=== PATIENT | female | born 1995 | race Two or more races ===

== ENCOUNTER 2024-09-17 12:40 | Emergency (ER) | payer MEDICAID, OTHER ==
[~2024-09-17] VITALS: Ht 154.9 cm; Wt 54.5 kg
[2024-09-17 12:42] VITALS: TEMP 97.6
--- NOTE | 2024-09-17 13:58 | ED.PDOC ---
Mult. trauma (HPI) HPI Comments 29 y/o F, presents to the ED for CC of animal bite. Patient states, she was bite by an unknown dog last night (09/17/24). Patient has, a jagged laceration to her right medial anterior thigh. Patient reports, that she is not UTD on her tetanus shot. Patient denies anuy purulent discharge, fever, chills, or sweats. No other symptoms or modifying factors present at this time. Chief Complaint: Animal Bite Time Seen by MD: 13:45 Reviewed notes: Nurses Notes, Medications, Allergies Allergies: Coded Allergies: NO KNOWN ALLERGIES (Unverified , 09/17/24) Home Meds Active Scripts Amoxicillin & Pot Clavulanate (Augmentin) 500 Mg Tab, 1 TAB PO BID for 10 Days, #20 TAB Prov:EFREN MAST MD 09/17/24 Mode of Arrival: Ambulatory Severity: Moderate Timing: Days Duration: Since onset Prehospital treatment: None Location: (R) Thigh Location of laceration: Other (right medial anterior thigh) Mechanism: Other (animal bite) Associated signs and symtoms: None Past Medical History PAST MEDICAL HISTORY: Denies Surgical History: Denies all surgeries [employer] 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 Family History Family History: Unknown Social History Smoker: Non-Smoker Alcohol: Denies ETOH Use Drugs: Denies Drug Use Lives In: Home Constitutional: denies: chills, diaphoresis, fatigue, fever, malaise, sweats, weakness, others EENTM: denies: blurred vision, double vision, ear bleeding, ear discharge, ear drainage, ear pain, ear ringing, eye pain, eye redness, hearing loss, mouth pain, mouth swelling, nasal discharge, nose bleeding, nose congestion, nose pain, photophobia, tearing, throat pain, throat swelling, voice changes, others Respiratory: denies: cough, hemoptysis, orthopnea, SOB at rest, shortness of breath, SOB with excertion, stridor, wheezing, others Cardiovascular: denies: chest pain, dizzy spells, diaphoresis, Dyspnea on exertion, edema, irregular heart beat, left arm pain, lightheadedness, palpitations, PND, syncope, others Gastrointestinal: denies: abdomen distended, abdominal pain, blood streaked bowels, constipated, diarrhea, dysphagia, difficulty swallowing, hematemesis, melena, nausea, poor appetite, poor fluid intake, rectal bleeding, rectal pain, vomiting, others Genitourinary: denies: abnormal vagina bleeding, burning, dyspareunia, dysuria, flank pain, frequency, hematuria, incontinence, pain, , vagina discharge, urgency, others Neurological: denies: dizziness, fainting, headache, left sided numbness, left sided weakness, numbness, paresthesia, pre-existing deficit, right sided numbness, right sided weakness, seizure, speech problems, tingling, tremors, weakness, others Musculoskeletal: denies: back pain, gout, joint pain, joint swelling, muscle pain, muscle stiffness, neck pain, others Integumetry: reports: laceration (right medial anterior thigh); denies: bruises, change in color, change in hair/nails, dryness, lesions, lumps, rash, wounds, others Allergic/Immunocompromised: denies: Difficulty Healing, Frequent Infections, Hives, Itching, others Hematologic/Lymphatic: denies: anemia, blood clots, easy bleeding, easy bruising, swollen glands, others Endocrine: denies: excessive hunger, excessive sweating, excessive thirst, excessive urination, flushing, intolerance to cold, intolerance to heat, unexplained weight gain, unexplained weight loss, others Psychiatric: denies: anxiety, bipolar disorder, depression, hopeless, panic disorder, schizophrenia, sleepless, suicidal, others All Other Systems: Reviewed and Negative Physical Exam General Appearance: Moderate Distress HEENT: Normal ENT Inspection, Pharynx Normal, TMs Normal Neck: Full Range of Motion, Non-Tender, Normal, Normal Inspection Respiratory: Chest Non-Tender, Lungs Clear, No Accessory Muscle Use, No Respiratory Distress, Normal Breath Sounds Cardiovascular: No Edema, No JVD, No Murmur, No Gallop, Normal Peripheral Pulses, Regular Rate/Rhythm Breast Exam: Deferred Gastrointestinal: No Organomegaly, Non Tender, No Pulsatile Mass, Normal Bowel Sounds, Soft Genitalia: Deferred Pelvic: Deferred Rectal: Deferred Extremities: No calf tenderness, Normal capillary refill, Normal inspection, Normal range of motion, Non-tender, No pedal edema Musculoskeletal : Apperance: Normal Neurologic: Alert, weight recorder II-XII nml as Tested, No Motor Deficits, Normal Affect, Normal Mood, No Sensory Deficits Cerebellar Function: Normal Reflexes: Normal Skin: Wounds (Right thigh punctate lesion 1.5 cm) Peripheral Pulses: 3+ Radial (R), 3+ Radial (L) Lymphatic: No Adenopathy Was a procedure done? Was a procedure done?: Yes Sedation Sedation?: No Laceration Repair : Location right medial anterior thigh Length 2cm V-shaped, Irregular Anesthetic: Lidocaine Laceration Repair Prep: Betadine (hydrogen peroxide), Manual Scrub Laceration Repair Wound Comple: epidermis/dermis repair Laceration Repair: [place] (6) Informed consent obtained: Yes Risks, benefits, and alternati: Yes Differential Diagnosis Multiple Trauma: Abrasions, Laceration X-Ray, Labs, Meds, VS Vital Signs Date Time Temp Pulse Resp B/P (MAP) Pulse Ox O2 Delivery O2 Flow Rate FiO2 09/17/24 15:17 120 18 139/101 (114) 94 09/17/24 15:17 120 18 94 Room Air 09/17/24 12:42 97.6 145 22 125/92 90 97.6 Current Medications Medications (Trade) Dose Ordered Sig/Radha Route Start Time Stop Time Status Last Admin Rabies Vaccine (Rabavert) 2.5 units ONCE ONCE IM 09/17/24 14:30 09/17/24 14:31 DC 09/17/24 14:30 Diphtheria/ Tetanus/Acell Pertussis (Boostrix T-Dap) 0.5 ml ONCE ONCE IM 09/17/24 14:30 09/17/24 14:31 DC 09/17/24 15:32 Patient alert. Unknown dog bite. Punctate lesion. Put one staple in the middle keep the wound open for drainage. Was given tetanus. Was given prescription Augmentin antibiotic. Explained to the patient about further infection from the wound. Has been almost a day since she came to the ER after the bite. Unable to close the wound. Very difficult bite. Adipose tissues skin irregular thin shredded. Try to approximate. High-risk of infection. Was told to follow up with her primary care physician. Was told to come back if there is any problem. Time of 1ST Reevaluation: 14:15 Reevaluation 1ST: Unchanged Patient Education/Counseling: Diagnosis, Treatment Family Education/Counseling: No Family Present Departure 1 Departure Time of Disposition: 16:01 Impression: Primary Impression: Dog bite Qualified Codes: W54.0XXA - Bitten by dog, initial encounter Additional Impression: Cellulitis Qualified Codes: L03.115 - Cellulitis of right lower limb Disposition: HOME / SELF CARE / HOMELESS Condition: Good e-Prescriptions Amoxicillin & Pot Clavulanate (Augmentin) 500 Mg Tab 1 TAB PO BID for 10 Days, #20 TAB Prov: EFREN MAST MD 09/17/24 Discharged With: Self Critical Care Note Critical Care Time?: No Stability Stability form required: No Heart Score Heart Score: Heart Score Response (Comments) Value History N/A 0 EKG N/A 0 Age N/A 0 Risk Factors N/A 0 Troponin N/A 0 Total 0 I personally scribed for EFREN MAST MD ([email or web address]) on 09/17/24 at 13:58. Electronically submitted by Sheryl Gao ([email or web address]). I personally scribed for EFREN MAST MD ([email or web address]) on 09/17/24 at 16:42. Electronically submitted by Sheryl Gao ([email or web address]). EFREN MAST MD Sep 17, 2024 13:58
[2024-09-17] MEDS: RABIES VACCINE (PCEC)/PF 2.5 UNITS IM ONE (14:30)
[2024-09-17 15:17] VITALS: BP 139/101; PULSE 120; RESP 18; O2SAT 94
[2024-09-17] MEDS: TETANUS-DIPTH-ACEL PERTUSSIS 0.5ML SYR Tdap IM ONE (15:32)
[2024-09-17] MEDS ORDERED: AMOX500T86 PO (16:02)
== END 2024-09-17 17:46 | disposition home or self-care (01) ==
LOC: ER 12:40
DX: S71.111A Laceration without foreign body, right thigh, initial encounter (principal); L03.115 Cellulitis of right lower limb; Z79.899 Other long term (current) drug therapy; W54.0XXA Bitten by dog, initial encounter; Y93.89 Activity, other specified; Y92.89 Other specified places as the place of occurrence of the external cause; Y99.8 Other external cause status
CPT/HCPCS: 12001; 90471; 90472; 90675; 90715